=== PATIENT | male | born 1980 | race Caucasian/White ===

== ENCOUNTER 2016-11-03 16:14 | Emergency (ER) | payer OTHER | END 2016-11-03 19:22 | disposition left against medical advice (07) | LOC: ER 16:14 | DX: I26.90 Septic pulmonary embolism without acute cor pulmonale (principal); R91.8 Other nonspecific abnormal finding of lung field; R05 Cough; Z79.891 Long term (current) use of opiate analgesic | CPT/HCPCS: 71250; 99283-25 ==